=== PATIENT | female | born 1995 | race Caucasian/White ===

== ENCOUNTER 2018-02-24 20:37 | Emergency (ER) | payer OTHER | END 2018-02-24 21:47 | disposition home or self-care (01) | LOC: D.ER 20:37 | DX: S39.012A Strain of muscle, fascia and tendon of lower back, initial encounter (principal); X58.XXXA Exposure to other specified factors, initial encounter; Y93.89 Activity, other specified; Y92.89 Other specified places as the place of occurrence of the external cause; M54.32 Sciatica, left side ==

== ENCOUNTER → 2018-12-16 11:56 | Outpatient (CLI) | payer BC | END | disposition home or self-care (01) | LOC: D.RAD 09:00 | DX: S43.005A Unspecified dislocation of left shoulder joint, initial encounter (principal); X58.XXXA Exposure to other specified factors, initial encounter ==

== ENCOUNTER 2019-03-04 18:17 | Emergency (ER) | payer BC ==
[~2019-03-04] VITALS: Ht 180.3 cm; Wt 145.5 kg
[2019-03-04 18:30] VITALS: Ht 180.3 cm; Wt 145.5 kg
[2019-03-04] MEDS ORDERED: PREPLUS CA-FE1 EACH PO (18:32)
[2019-03-04] MEDS ORDERED: ZOFRAN4 MG PO (18:32)
[2019-03-04 19:08] LABS: APPEARANCE CLEAR (CLEAR); BILIRUBIN NEGATIVE (NEGATIVE); COLOR YELLOW (YELLOW); GLUCOSE NEGATIVE (NEGATIVE); KETONE NEGATIVE (NEGATIVE); NITRITE NEGATIVE (NEGATIVE); PROTEIN NEGATIVE (NEGATIVE); SPECIFIC GRAVITY 1.025 (1.005-1.020); UROBILINOGEN NORMAL (NORMAL)
[2019-03-04 19:43] LABS: BASOPHILS 0.1 % (0-2); EOSINOPHILS 0.7 % (0-7); HEMATOCRIT 37.5 % (36.0-48.0); HEMOGLOBIN 12.9 g/dL (12-16); IMMATURE GRANULOCYTES 0.3 % (0-5); LYMPHOCYTES 20.4 % (15-50); MCH 27.7 pg (26.0-34.0); MCHC 34.4 g/dL (31.0-37.0); MCV 80.5 fL (80.0-100.0); MEAN PLATELET VOLUME 10.2 fL (7.4-10.4); MONOCYTES 5.9 % (2-11); NEUTROPHILS 72.6 % (40-80); PLATELET COUNT 220 10x3/uL (130-400); RBC 4.66 10x6/uL (4.00-5.40); RDW 13.8 % (11.5-14.5); WBC 11.8 10x3/uL (4.8-10.8)
[2019-03-04 20:26] LABS: ALBUMIN 3.4 g/dL (3.4-5.0); ALKALINE PHOSPHATASE 69 U/L (46-116); ALT (SGPT) 21 U/L (10-68); BILIRUBIN - TOTAL 0.26 mg/dL (0.2-1.3); CALC OSMOLALITY 272 mosm/kg (275-300); CALCIUM 9.4 mg/dL (8.5-10.1); CARBON DIOXIDE 25.7 mmol/L (21.0-32.0); CHLORIDE - SERUM 102 mmol/L (98-107); CREATININE - SERUM 0.6 mg/dL (0.6-1.3); GLUCOSE 90 mg/dL (74-106); POTASSIUM - SERUM 3.6 mmol/L (3.5-5.1); PROTEIN - SERUM 7.5 g/dL (6.4-8.2); SODIUM 137 mmol/L (136-145); UREA NITROGEN 9 mg/dL (7-18); eGFR NON AFRICAN AMERICAN > 90 mL/min (90-120)
[2019-03-04 20:48] LABS: AMYLASE - SERUM 37 U/L (25-115); HCG - QUANTITATIVE (MATERNAL) 22590 mIU/mL; LIPASE 128 U/L (73-393)
[2019-03-04 21:52] VITALS: BP 132/80
== END 2019-03-04 21:52 | disposition home or self-care (01) ==
LOC: D.ER 18:17
PROVIDERS: Family Medicine
DX: O34.80 Maternal care for other abnormalities of pelvic organs, unspecified trimester (principal)

== ENCOUNTER → 2019-06-17 07:58 | Outpatient (CLI) | payer BC ==
[2019-03-04 18:30] VITALS: BMI 44.7
[~2019-06-17 07:58] MED LIST: BUTALB-APAP-CA1 EACH PO; PREPLUS CA-FE1 EACH PO; ZOFRAN4 MG PO
[2019-06-17 08:56] LABS: APPEARANCE CLOUDY (CLEAR); COLOR YELLOW (YELLOW); SPECIFIC GRAVITY 1.025 (1.005-1.020)
[2019-06-17 08:57] LABS: AMORPHOUS SEDIMENT <1+ /lpf (NONE SEEN); BACTERIA MANY /hpf (NONE SEEN); BILIRUBIN NEGATIVE (NEGATIVE); GLUCOSE NEGATIVE (NEGATIVE); KETONE SMALL mg/dL (NEGATIVE); MUCUS <1+ /lpf (NONE SEEN); NITRITE NEGATIVE (NEGATIVE); PROTEIN TRACE mg/dL (NEGATIVE); RED CELLS - URINE RARE /hpf (0-5)
[2019-06-17 09:31] LABS: BASOPHILS 0 % (0-2); EOSINOPHILS 0.3 % (0-7); HEMOGLOBIN 10.2 g/dL (12-16); IMMATURE GRANULOCYTES 0.2 % (0-5); LYMPHOCYTES 9.7 % (15-50); MCH 26.5 pg (26.0-34.0); MCHC 32.9 g/dL (31.0-37.0); MCV 80.5 fL (80.0-100.0); MONOCYTES 5.7 % (2-11); NEUTROPHILS 84.1 % (40-80); PLATELET COUNT 200 10x3/uL (130-400); RBC 3.85 10x6/uL (4.00-5.40); WBC 11.6 10x3/uL (4.8-10.8)
[2019-06-17 09:49] LABS: ALBUMIN 2.4 g/dL (3.4-5.0); ALKALINE PHOSPHATASE 110 U/L (46-116); ALT (SGPT) 13 U/L (10-68); BILIRUBIN - TOTAL 0.23 mg/dL (0.2-1.3); CALC OSMOLALITY 274 mosm/kg (275-300); CALCIUM 8.3 mg/dL (8.5-10.1); CHLORIDE - SERUM 105 mmol/L (98-107); CREATININE - SERUM 0.5 mg/dL (0.6-1.3); GLUCOSE 126 mg/dL (74-106); POTASSIUM - SERUM 3.7 mmol/L (3.5-5.1); PROTEIN - SERUM 6.2 g/dL (6.4-8.2); SODIUM 138 mmol/L (136-145); UREA NITROGEN 5 mg/dL (7-18); eGFR NON AFRICAN AMERICAN > 90 mL/min (90-120)
== END | disposition home or self-care (01) ==
LOC: D.LDO 07:58
PROVIDERS: ATTEND Obstetrics & Gynecology
DX: O26.893 Other specified pregnancy related conditions, third trimester (principal); Z3A.32 32 weeks gestation of pregnancy

== ENCOUNTER → 2019-07-28 16:31 | Outpatient (CLI) | payer BC ==
[2019-03-04 18:30] VITALS: BMI 44.7
== END | disposition home or self-care (01) ==
LOC: D.LDO 16:31
PROVIDERS: ATTEND Obstetrics & Gynecology
DX: O26.893 Other specified pregnancy related conditions, third trimester (principal); Z3A.37 37 weeks gestation of pregnancy

== ENCOUNTER → 2019-07-29 15:48 | Outpatient (CLI) | payer BC ==
[2019-03-04 18:30] VITALS: BMI 44.7
[2019-07-29 16:15] LABS: PROTEIN - URINE 7.3 mg/dL (0.0-11.9)
== END | disposition home or self-care (01) ==
LOC: D.LDO 15:48
PROVIDERS: ATTEND Obstetrics & Gynecology
DX: Z34.90 Encounter for supervision of normal pregnancy, unspecified, unspecified trimester (principal)

== ENCOUNTER → 2019-08-04 14:04 | Outpatient (CLI) | payer BC ==
[2019-03-04 18:30] VITALS: BMI 44.7
[2019-08-04 14:32] LABS: BASOPHILS 0.1 % (0-2); EOSINOPHILS 0.4 % (0-7); HEMATOCRIT 30.5 % (36.0-48.0); HEMOGLOBIN 9.7 g/dL (12-16); IMMATURE GRANULOCYTES 0.4 % (0-5); LYMPHOCYTES 11.4 % (15-50); MCH 24.1 pg (26.0-34.0); MCHC 31.8 g/dL (31.0-37.0); MCV 75.9 fL (80.0-100.0); MEAN PLATELET VOLUME 10.6 fL (7.4-10.4); MONOCYTES 6.4 % (2-11); NEUTROPHILS 81.3 % (40-80); PLATELET COUNT 185 10x3/uL (130-400); RBC 4.02 10x6/uL (4.00-5.40); RDW 14.7 % (11.5-14.5)
[2019-08-04 14:57] LABS: ALBUMIN 2.5 g/dL (3.4-5.0); ALKALINE PHOSPHATASE 173 U/L (46-116); ALT (SGPT) 13 U/L (10-68); BILIRUBIN - INDIRECT 0.22 mg/dL (0.00-1.00); BILIRUBIN - TOTAL 0.32 mg/dL (0.2-1.3); CALC OSMOLALITY 277 mosm/kg (275-300); CALCIUM 8.3 mg/dL (8.5-10.1); CARBON DIOXIDE 22.7 mmol/L (21.0-32.0); CHLORIDE - SERUM 106 mmol/L (98-107); CREATININE - SERUM 0.5 mg/dL (0.6-1.3); GLUCOSE 112 mg/dL (74-106); POTASSIUM - SERUM 3.9 mmol/L (3.5-5.1); PROTEIN - SERUM 5.9 g/dL (6.4-8.2); SODIUM 140 mmol/L (136-145); UREA NITROGEN 7 mg/dL (7-18); eGFR NON AFRICAN AMERICAN > 90 mL/min (90-120)
[2019-08-05 17:45] LABS: PROTEIN - URINE 6.6 mg/dL (0.0-11.9)
[2019-08-15 21:59] VITALS: BMI 45.0
== END | disposition home or self-care (01) ==
LOC: D.LDO 14:04
PROVIDERS: ATTEND Obstetrics & Gynecology
DX: O10.919 Unspecified pre-existing hypertension complicating pregnancy, unspecified trimester (principal)

== ENCOUNTER 2019-08-15 20:26 | Inpatient (IN) | payer BC ==
[~2019-08-15] VITALS: Ht 180.3 cm; Wt 146.5 kg
[2019-08-15 21:59] VITALS: BP 144/67; Ht 180.3 cm; Wt 146.5 kg
[2019-08-16 00:03] LABS: MCH 24.6 pg (26.0-34.0); MCHC 32.3 g/dL (31.0-37.0); MCV 76.4 fL (80.0-100.0); MEAN PLATELET VOLUME 10.8 fL (7.4-10.4); RBC 4.06 10x6/uL (4.00-5.40); RDW 14.3 % (11.5-14.5); WBC 12.8 10x3/uL (4.8-10.8)
[2019-08-16 00:06] LABS: APPEARANCE HAZY (CLEAR); BILIRUBIN NEGATIVE (NEGATIVE); COLOR YELLOW (YELLOW); GLUCOSE NEGATIVE (NEGATIVE); KETONE NEGATIVE (NEGATIVE); NITRITE NEGATIVE (NEGATIVE); PROTEIN NEGATIVE (NEGATIVE); UROBILINOGEN NORMAL (NORMAL)
[2019-08-16 00:08] LABS: BACTERIA MODERATE /hpf (NEGATIVE); EPITHELIAL CELLS 0-5 /hpf (0-5); RED CELLS - URINE 0-5 /hpf (0-5)
[2019-08-16 00:20] LABS: UDS - AMPHET NEGATIVE QUAL (NEGATIVE); UDS - BARB NEGATIVE QUAL (NEGATIVE); UDS - BENZO NEGATIVE QUAL (NEGATIVE); UDS - COCAINE NEGATIVE QUAL (NEGATIVE); UDS - OPIATE NEGATIVE QUAL (NEGATIVE); UDS - PCP NEGATIVE QUAL (NEGATIVE); UDS - THC NEGATIVE QUAL (NEGATIVE)
[2019-08-17 07:13] LABS: RAPID PLASMA REAGIN Non Reactive (Non Reactive)
[2019-08-17 13:23] VITALS: BP 103/57
--- NOTE | 2019-08-17 21:16 | NUR ---
PT RETURNED FROM PACU IN STABLE CONDITION, BLEEDING MODERATE, FUNDUS ML/-1/FIRM. PERICARE PERFORMED AND CLEAN PAD PLACED. IV CONTINUES WITH NS/20U PITOCIN AT 125ML/HR/ CHESTER CATHETER DRAINING TO GRAVITY WITH 75ML CLEAR YELLOW URINE NOTED IN UROMETER. LOW TRANSVERSE ABDOMINAL DRESSING NOTED TO BE CLEAN DRY AND INTACT. PT DENIES PAIN AT THIS TIME.
--- NOTE | 2019-08-17 21:33 | NUR ---
TORADOL 30MG IVP ADMINISTERED AT THIS TIME PER MD ORDERS. SEE EMAR
[2019-08-17 21:36] VITALS: BP 133/61
--- NOTE | 2019-08-17 21:36 | NUR ---
PERICARE DONE, FUNDUS REMAINS MIDLINE/U-1, FIRM. BLEEDING IS SMALL RUBRA, CLEAN PAD PLACED. PT DENIES PAIN OR NEEDS. WILL CONTINUE TO MONITOR.
[2019-08-17 21:57] VITALS: BP 132/63
--- NOTE | 2019-08-17 21:59 | NUR ---
FUNDUS REMAINS FIRM/ML/-1, BLEEDING SMALL RUBRA, PERICARE DONE AND PAD CHANGED. CHESTER DRAINING TO GRAVITY WITH SALOME URINE NOTED. IV CONTINUES WITH NO SIGNS OF INFILTRATION. PT DENIES PAIN. BED REMAINS LOW IN LOCKED POSITION, SIDE RAILS UPX2, CALL ARAUZ AND TRAY TABLE IN REACH. WILL CONTINUE TO MONITOR
[2019-08-17 22:20] VITALS: BP 133/59
--- NOTE | 2019-08-17 22:22 | NUR ---
PT WITH SCANT BLEEDING, CHESTER CONTINUING TO DRAIN TO GRAVITY WITH 40 ML SALOME URINE NOTED. BED REMAINS LOCKED IN LOW POSITION, SIDERAILS UPX2, CALL ARAUZ AND TRAY TABLE IN REACH. WILL CONTINUE TO MONITOR
--- NOTE | 2019-08-17 22:40 | NUR ---
NEW IV BAG HUNG PER MD ORDERS, SEE EMAR.
--- NOTE | 2019-08-17 22:41 | NUR ---
ADMINISTERED DILAUDID 1MG SLOW IVP PER PT REQUEST FOR PAIN 03/25. SEE EMAR.
[2019-08-17 23:07] VITALS: BP 127/57
--- NOTE | 2019-08-17 23:07 | NUR ---
PT SLEEPING O2 SAT NOTED TO BE 92%, EASILY AROUSED TO VERBAL STIMULI. NASAL CANNULA APPLIED WITH 2L/MIN. PT DENIES NEEDS, WILL CONTINUE TO MONITOR
--- NOTE | 2019-08-17 23:51 | NUR ---
PATIENT RESTING QUIETLY WITH EYES CLOSED, RESPIRATIONS EVEN AND NONLABORED. PT CONTINUES WITH O2@2L/MIN WITH O2 SAT READING OF 96%. SIGNIFICANT OTHER REMAINS AT BEDSIDE FOR SUPPORT. BED IS LOCKED IN LOW POSITION, SIDE RAILS UPX2, CALL ARAUZ AND TRAY TABLE IN REACH. WILL CONTINUE TO MONITOR.
[2019-08-17 23:56] VITALS: BP 123/60
--- NOTE | 2019-08-18 00:30 | NUR ---
PT SLEEPING WITH EVEN RESPIRATIONS, NO DISTRESS NOTED. EASILY AROUSED TO VERBAL STIMULI, RATES HER PAIN 5/10 BUT STATES THAT IT HAD GOTTEN BETTER WITH THE PAIN MEDICINE. FUNDUS ML/U-1/FIRM, BLEEDING SMALL RUBRA, CLEAN PADS PLACED. CHESTER CATHETER UROMETER EMPTIED OF 75 ML DARK YELLOW URINE. BED REMAINS LOCKED IN LOW POSITION, SIDE RAILS UPX2, CALL ARAUZ AND TRAY TABLE IN REACH. SIGNIFICANT OTHER REMAINS AT BEDSIDE FOR SUPPORT.
--- NOTE | 2019-08-18 02:55 | NUR ---
PT RESTING QUIETLY WITH EYES CLOSED, RATES HER PAIN 7/10. DILAUDID 2MG SLOW IVP ADMINISTERED PER MD ORDERS, SEE EMAR.CHESTER CATHETER REMAINS DRAINING TO GRAVITY, 125ML SALOME URINE EMPTIED FROM UROMETER. ICE WATER PROVIDED PER PT REQUEST. O2 REMAINS ON VIA NC AT 2L/MIN. NO FURTHER NEEDS IDENTIFIED, WILL CONTINUE TO MONITOR
--- NOTE | 2019-08-18 03:37 | NUR ---
PT SLEEPING WITH AUDIBLE SNORING, EASILY AROUSED TO VERBAL, RATES HER PAIN 1/10. TORADOL ADMINISTERED PER MD ORDERS, SEE EMAR. PT CONTINUES TO HAVE SCD BOOTS ATTACHED TO WORKING MACHINE, CHESTER CATHETER DRAINING TO GRAVITY, LOW TRANSVERSE ABDOMINAL DRESSING REMAINS CLEAN DRY AND INTACT. OXYGEN REMAINS ON PT VIA NC AT 2L/MIN WITH O2 SAT 95% BED REMAINS LOCKED IN LOW POSITION, SIDE RAILS UP X2, CALL ARAUZ AND TRAY TABLE IN REACH. WILL CONTINUE TO MONITOR.
--- NOTE | 2019-08-18 05:57 | NUR ---
PT RESTING QUIETLY WITH EYES CLOSED, EASILY AROUSED TO VERBAL. PT DENIES PAIN OR NEEDS AT THIS TIME. SIGNIFICANT OTHER REMAINS AT BEDSIDE FOR SUPPORT. WILL CONTINUE TO MONITOR
--- NOTE | 2019-08-18 06:28 | NUR ---
PERICARE PERFORMED, CLEAN PADS PLACED, BLEEDING SMALL, RUBRA WITH NO CLOTS. CHESTER REMAINS DRAINING TO GRAVITY 75 ML SALOME URINE NOTED IN UROMETER. NEW BAG OF IV FLUIDS HUNG PER MD ORDERS. PT DENIES NEEDS, WILL CONTINUE TO MONITOR.
--- NOTE | 2019-08-18 07:25 | NUR ---
TO ROOM FOR AM ASSESSMENT. SEE FLOWSHEET FOR COMPLETE DOCUMENTATION. ABDOMEN PALPATES SOFT, FUNDUS FIRM, U/1, SMALL RUBRA LOCHIA, NO CLOTS NOTED. DRESSING C/D/I. FRESH ICE PACK PLACED OVER GOWN TO INCISION. PT REPORTS +FLATUS. DENIES NAUSEA/VOMITING, SOB, DIZZINESS OR DIFFICULTY BREATHING. CHESTER CATH NOTED TO HAVE 50 CC'S DARK YELLOW URINE IN UROMETER. LARGE MUG OF ICE WATER SERVED TO PT AND ENCOURAGED PO INTAKE. INCENTIVE SPIROMETER PROVIDED TO PT WITH INSTRUCTIONS ON USE, AND PT DEMONSTRATES WELL. COUGHING AND DEEP BREATHING EXERCISES EXPLAINED TO PT. CLEAR LIQUID TRAY SERVED BY DIETARY. PT DENIES ALL OTHER NEEDS. SRUP X2, CALL LIGHT AND PHONE WITHIN REACH.
[2019-08-18 07:27] VITALS: BP 126/63
--- NOTE | 2019-08-18 08:37 | NUR ---
PT SITTING UP IN THE BED, FAMILY AT BEDSIDE. 30 CC'S DARK YELLOW URINE NOTED IN UROMETER. PT STATES "THAT CHICKEN BROTH MADE ME A LITTLE SICK TO MY STOMACH", DENIES NAUSEA NOW. DENIES WANTING MEDICATION TO HELP WITH NAUSEA. PT IS TOLERATING DRINKING WATER AND APPLE JUICE THIS AM. PT DENIES ALL OTHER NEEDS.
--- NOTE | 2019-08-18 09:45 | NUR ---
to room for toradol adm. pt is asleep, snoring softly, resp even and unlabored at 18/min. awakened pt, medication adm schedule explained to pt. toradol diluted in 10 cc's ns, and given sivp, then flushed with 10 cc's ns. iv site without redness or swelling, no c/o pain to iv site. sig other on sofa, resting. pt wishes to have all lights out, and wants to sleep. sr up x2, call light and phone within reach.
[2019-08-18 12:45] VITALS: BP 131/68
--- NOTE | 2019-08-18 12:45 | NUR ---
to pt's room, pt is resting in bed, watching tv. family at bedside. abdomen continues to palpate soft. dressing over incision remains c/d/i. gallagher cath removed intact with 150 ml's dark yellow urine out. pericare done with warm wet washcloths, peritowels/pads changed. pt served large glass of ice water. pt continues to use incentive spirometer, and coughing and deep breathing exercises well. denies sob, difficulty breathing, or n/v. see emar for all meds adm by this rn. sr upx 2, call light and phone within reach.
--- NOTE | 2019-08-18 17:15 | NUR ---
pt assisted up to br, gait slow and steady. pt voids 200 ml's in [place] hat. pericare done per self with warm wet washcloths. peripanties and pads on. clean gown on. chux changed. pt then back to bed, with assistance. srup x2, call light and phone within reach. dietary contacted for regular diet. pt denies all other needs at this time. srup x2, call light and phone within reach.
[2019-08-18 19:55] VITALS: BP 136/67
--- NOTE | 2019-08-18 19:55 | NUR ---
PATIENT WALKING BACK TO BED FROM THE BATHROOM, PT VOIDED WITHOUT INCIDENT 900 ML CLEAR YELLOW URINE EMPTIED FROM URINE HAT. BLEEDING SMALL,RUBRA WITH NO CLOTS NOTED. PATIENTS ABD DRESSING REMAINS CLEAN DRY AND INTACT, DECLINES A SHOWER AT THIS TIME. STATES THAT SHE IS TOO TIRED. PERCOCET 10/325MG ADMINISTERED PO PER MD ORDERS AND PT REQUEST. BED REMAINS LOCKED IN LOW POSITION, SIDERAILS UPX2,CALL ARAUZ AND TRAY TABLE IN REACH. WILL CONTINUE TO MONITOR.
--- NOTE | 2019-08-18 20:59 | NUR ---
PATIENT SITTING UP IN BED EATING FOOD BROUGHT FROM HOME. HR 103. PT DENIES NEEDS. WILL CONTINUE TO MONITOR
--- NOTE | 2019-08-18 21:52 | NUR ---
PATIENT SITTING UP IN BED EATING ICE CREAM, INFANT REMAINS AT BEDSIDE IN OPEN CRIB. PT DENIES NEEDS OR PAIN AT THIS TIME. WILL CONTINUE TO MONITOR
[2019-08-18 23:02] VITALS: BP 145/85
--- NOTE | 2019-08-18 23:04 | NUR ---
PATIENT AMBULATING BACK TO BED FROM BATHROOM, RATES HER PAIN 8/10. PT IS TEARFUL. WILL BRING TORADOL SCHEDULED AT 2330.
--- NOTE | 2019-08-18 23:55 | NUR ---
PT RESTING QUIETLY WITH EYES CLOSED, EASILY AROUSED TO VERBAL, HR 125, LUNG SOUNDS CLEAR BILATERALLY. PT RATES HER PAIN 7/10, NORCO 10/325MG PO ADMINISTERED AT THIS TIME PER PT REQUEST AND MD ORDERS. NO FURTHER NEEDS IDENTIFIED. WILL CONTINUE TO MONITOR.
--- NOTE | 2019-08-19 00:40 | NUR ---
pt resting quietly with eyes closed, no distress noted.
--- NOTE | 2019-08-19 02:55 | NUR ---
PATIENT RESTING QUIETLY IN BED WITH EYES CLOSED, EASILY AROUSED TO VERBAL STIMULI, DENIES PAIN OR NEEDS AT THIS TIME.
--- NOTE | 2019-08-19 04:00 | NUR ---
CALLED TO ROOM BY PT FOR ASSISTANCE UP TO THE BATHROOM. PT VOIDED WITHOUT DIFFICULTY, SMALL RUBRA LOCHIA, PAD CHANGED AND PT BACK TO BED.
--- NOTE | 2019-08-19 04:08 | NUR ---
NORCO 10/325MG PO PER MD ORDERS AND PT REQUEST. JUICE PROVIDED, NO FURTHER NEEDS IDENTIFIED. WILL CONTINUE TO MONITOR
--- NOTE | 2019-08-19 07:30 | NUR ---
ASSUMED CARE OF THIS PATIENT AT THIS TIME. SITTING UP IN BED GETTING READY TO EAT BREAKFAST. IN CRIB. WILL COMPLETE SHIFT ASSESSMENT AFTER BREAKFAST. RESTAURANT HOURLY TEAM MEMBER, NON SMOKER, GBS NEG, UDS +. A+ RUBELLA IMMUNE. DENIES NEEDING ANYTHING AT THIS TIME. SIDE RAILS UP X 2, CALL LIGHT IN REACH. DISCUSSED PLAN OF CARE FOR TODAY TO INCLUDE SHOWER AND AMBULATION IN GRAVES. VERBALIZED UNDERSTANDING.
--- NOTE | 2019-08-19 08:19 | NUR ---
PATIENT'S ADMISSION UDS WAS NEGATIVE. RECEIVED TDAP DURING ON 06/22/2019.
[2019-08-19 08:26] VITALS: BP 140/69
--- NOTE | 2019-08-19 09:12 | NUR ---
COMPLETED SHOWER, DRESSING REMOVED, LEE INTACT NO DRAINAGE, NO ERRYTHEMA. INSTRUCTED ON CARE OF INCISION DURING SHOWER. INSTRUCTED ON USE OF JOSE ALEJANDRO-PAD OVER INCISION AND TO CHANGE EVERY 2 -3 HOURS. VERBALIZED UNDERSTANDING. REQUESTED PAIN MEDICATION FOR 6/10 INCISIONAL PULLING. PERCOCET 10 MG GIVEN PO. SIDE RAILS UP X 2, CALL LIGHT IN REACH. INFANT IN NURSERY, FOB ON COUCH.
[2019-08-19 09:15] VITALS: BP 120/62
--- NOTE | 2019-08-19 10:59 | NUR ---
SITTING UP IN BED TALKING TO FOB. DENIES NEEDING ANYTHING FOR PAIN AT THIS TIME. FOB BOTTLE FED . ABD BINDER AT BEDSIDE PT WILL CALL WHEN OOB TO ASSIST WITH PUTTING BINDER ON. NO REQUESTS AT THIS TIME. WILL BE DC'D HOME TOMORROW.
--- NOTE | 2019-08-19 14:33 | NUR ---
AMBULATED TO NURSERY AND BACK TO ROOM WITHOUT DIFFICULTY. ENCOURAGE TO GET OOB AND AMBULATE IN GRAVES 2-3 MORE TIMES THIS AFTERNOON. ALSO ENCOURAGED TO SIT UP ON COUCH. VERBALIZED UNDERSTANDING. INFANT IN ROOM WITH FOB WHO HAS BEEN FEEDING AND CHANGING 'S DIAPER. TO CALL IF ANYTHING IS NEEDED.
--- NOTE | 2019-08-19 16:05 | NUR ---
SITTING UP IN BED GETTING READY TO AMBULATE IN GRAVES. SAYS SHE IS FEELING BETTER. FOB IN ROOM. INFANT IN CRIB. NO REQUESTS.
--- NOTE | 2019-08-19 16:56 | NUR ---
AMBULATED IN GRAVES AND RETURNED TO ROOM. VISITORS IN ROOM WITH . OFFERED PAIN MEDICATION. DECLINED. SAYS SHE WILL CALL WHEN READY.
[2019-08-19 18:18] VITALS: BP 140/61
--- NOTE | 2019-08-19 18:19 | NUR ---
SITTING UP IN BED. REQUESTED PAIN MEDICATION. PERCOCET 10 MG GIVEN PO FOR RELIEF OF 6/10 INCISIONAL ACHING. ASLEEP IN CRIB, RESP EVEN. FOB SLEEPING ON COUCH. DENIES NEEDING ANYTHING ELSE AT THIS TIME. STATES "IT'S ALMOST TIME TO FEED HIM, LET HIM SLEEP FOR NOW." SIDE RAILS UP X 2, CALL LIGHT IN REACH.
[2019-08-19 19:51] VITALS: BP 149/73
--- NOTE | 2019-08-19 19:51 | NUR ---
PT REC'D IN BED AT THIS TIME. HOLDING INFANT. DENIES PAIN AT THIS TIME. LUNGS CLEAR. BS+. PT STATES THAT SHE IS PASSING FLATUS. LEE TO ABDOMEN INTACT. NO S/S OF INFECTION NOTED. FUNDUS FIRM AND MIDLINE. SMALL LOCHIA NOTED. NO ACUTE DISTRESS NOTED. Zari AIKEN RN
--- NOTE | 2019-08-19 20:43 | NUR ---
PT WITH FAMILY AT THE BEDSIDE. NO DISTRESS NO SARHA. NO NEEDS VOICED. Zari AIKEN RN
--- NOTE | 2019-08-19 21:39 | NUR ---
PT AMBULATING AT THIS TIME. DENIES NEEDS AT THIS TIME. Zari AIKEN RN
--- NOTE | 2019-08-19 22:36 | NUR ---
PT MEDICATED WITH TORADOL FOR PAIN LEVEL OF 6 WILL CONTINUE TO MONITOR. Zari AIKEN RN
--- NOTE | 2019-08-19 23:45 | NUR ---
PT UP AMBULATING AT THIS TIME. PT STATES THAT PAIN IS A 5 WHILE AMBULATING BUT NO NEED FOR PAIN MEDS AT THIS TIME. WILL CONTINUE TO MONITOR. Zari AIKEN RN
[2019-08-20 00:55] VITALS: BP 135/60
--- NOTE | 2019-08-20 00:55 | NUR ---
PT STATES THAT PAIN IS A 2 AT THIS TIME. DENIES NEED FOR PAIN MEDICATION. RESTING COMFORTABLY AT THIS TIME. NIO DISTRESS NOTED. Zari AIKEN RN
--- NOTE | 2019-08-20 02:45 | NUR ---
PT REC'D IN BED ASLEEP. DID NOT AWAKEN. RESPS EVEN AND UNLABORED. WILL CONTINUE TO MONITOR. Zari AIKEN RN
[2019-08-20 05:17] VITALS: BP 139/69
--- NOTE | 2019-08-20 05:17 | NUR ---
PT REC'D IN BED AT THIS TIME. RESTING COMFORTABLY AT THIS TIME. STATES PAIN IS A 2. VITAL STABLE. NO ACUTE DISTRESS NOTED. Zari AIKEN RN
--- NOTE | 2019-08-20 07:15 | NUR ---
ASSUMED CARE OF THIS PATIENT AT THIS TIME. CURRENTLY SLEEPING. WILL COMPLETE SHIFT ASSESSMENT WHEN AWAKE OR AFTER BREAKFAST. SIDE RAILS UP X 2, CALL LIGHT IN REACH.
[2019-08-20 08:17] VITALS: BP 117/61
--- NOTE | 2019-08-20 08:17 | NUR ---
SHIFT ASSESSMENT COMPLETED. REGULAR DIET AT BEDSIDE. IN CRIB, FOB ON COUCH. DENIES NEEDING PAIN MEDICATION OR ANYTHING ELSE AT THIS TIME. DESIRES TO SLEEP. WILL DC HOME TODAY WITH INFANT PER MD ORDERS. UP TO DATE ON TDAP AND FLU VACCINE.
--- NOTE | 2019-08-20 08:31 | NUR ---
DR REDDY VISITED PT. INFORMED OF CURRENT BP. DC HOME TODAY WITH .
[2019-08-20] MEDS ORDERED: PERCOCET 5-3251 TAB PO (09:39)
--- NOTE | 2019-08-20 09:50 | NUR ---
SITTING UP IN BED HOLDING IN ARMS. FOB ON COUCH. DENIES NEEDING ANYTHING AT THIS TIME. SIDE RAILS UP X 2, CALL LIGHT IN REACH.
--- NOTE | 2019-08-20 11:20 | NUR ---
SLEEPING TILTED TO RIGHT SIDE, RESP EVEN. FOB SLEEPING ON COUCH. IN NURSERY FOR CIRCUMCISION. WILL DC HOME WHEN IS DC'D HOME.
--- NOTE | 2019-08-20 12:40 | NUR ---
AWAKE, DESIRES TO TAKE SHOWER NOW. VISITORS IN ROOM. IN ROOM. WILL DC WHEN INFANT IS DC'D THIS AFTERNOON. UP TO SHOWER.
--- NOTE | 2019-08-20 13:39 | NUR ---
REQUESTED PAIN MEDICATION BEFORE GOING HOME. PERCOCET 5 MG GIVEN PO FOR RELIEF OF 5/10 INCISIONAL ACHING. DC TEACHING TO INCLUDE POST OP C/S CARE, PP DEPRESSION, S&S INFECTION, DANGER SIGNS, BREAST CARE/BOTTLE FEEDING, MEDICATION ADMINISTRATION AND FOLLOW-UP. NO SPECIFIC QUESTIONS ASKED AT THIS TIME. VERBALIZED UNDERSTANDING. WAITING ON RIDE TO RETURN AND DC ON INFANT.
--- NOTE | 2019-08-20 14:45 | NUR ---
DC'D VIA WHEELCHAIR TO CAR. IN [place]. FAMILY MEMBER DRIVING CAR. HAS PRESCRIPTIONS AND DC INSTRUCTIONS. ALL BELONGINGS REMOVED FROM ROOM.
--- NOTE | 2019-08-23 07:42 | OP ---
PATIENT NAME: TIFFANY MARQUEZ MEDICAL RECORD: [id number] :96 LOCATION:[id number] ADMISSION DATE:08/15/19 SURGEON: NEFTALI GRESHAM MD DATE OF OPERATION: 08/17/2019 PREOPERATIVE DIAGNOSES: 1. -induced hypertension. 2. at term. 3. Nonreassuring tracing. POSTOPERATIVE DIAGNOSES: 1. -induced hypertension. 2. at term. 3. Nonreassuring tracing. 4. Nuchal cord. PROCEDURE: Primary low transverse section. SURGEON: Neftali Gresham MD ANESTHESIOLOGIST: Dr. Smiley. DEFENCE INTELLIGENCE ANALYST: Aydin Denney. ANESTHETIC: Continuous lumbar epidural. FINDINGS: Viable male infant, vertex presentation, Apgars were 8 and 9. Nuchal cord reduced. Weight 8 pounds 10 ounces. Unremarkable appearing uterus, tubes, and ovary. SPECIMENS REMOVED: Placenta. SPECIMEN DISPOSITION: Discarded. Cord blood and blood gas sent. ESTIMATED BLOOD LOSS: 800 cc. FLUIDS: 1600 cc of lactated Ringer's. URINE OUTPUT: 200 cc of clear urine. COMPLICATIONS: None. DRAINS: Ramachandran to gravity. INDICATIONS: The patient is a 24-year-old G1, para 0 at 40 weeks with elevation in blood pressure. The patient was considered for induction of labor. The patient received 24 hours of Cytotec and then Pitocin. The patient progressed to 6 cm; however, with labor contractions, adequate repetitive late decelerations occurred times 2. The patient is consented for a primary low transverse section. DESCRIPTION OF PROCEDURE: After informed consent was assured, the patient was taken to the operating room where anesthetic was assessed and found to be OPERATIVE REPORT [id number] TIFFANY MARQUEZ adequate. With the patient prepped and draped, a low transverse incision was made on the abdomen, carried down to the underlying layer of the fascia, which was opened in the midline and extended out laterally. Rectus bellies were dissected free, then in the midline. The peritoneum was entered bluntly and Gopi retractor inserted and tightened. DeLee all-purpose retractor was now inserted and bladder flap developed. The bladder blade was now reinserted and low transverse hysterotomy was performed. The was delivered onto the abdomen. Cord was doubly clamped and cut and the was passed to the attendance. Cord blood sample and cord gas were sent. The IUPC had been left in place and it is removed. The placenta was delivered via Crede maneuver and uterus exteriorized, cleared of all clot and debris. After clearing the uterus of debris and clot, it was returned to the abdomen and the hysterotomy was closed. There is a vertical rent in the midline below the level of the hysterotomy and this was closed with a small run of chromic stitch. The low transverse hysterotomy was now closed in a running fashion. After the close of the hysterotomy, the pelvis irrigated, irrigant removed and inspection of the hysterotomy reveals adequate hemostasis. The rectus bellies were inspected and found to be hemostatic. The fascia was now closed with looped PDS and subcutaneous tissues reapproximated with plain gut. Luttrell were applied. Sponge, lap, needle counts were correct times 2. The patient recovered in labor and delivery and then will continue for care. TRANSINT:[id number] Voice Confirmation ID: [id number] DOCUMENT ID: [id number] NEFTALI GRESHAM MD at 0742 CC: [id number] DICTATION DATE: 08/17/192038 BARREL HEADER: 08/18/19 0429 DIS IN 08/20/19 [facility] [address] [place] [address]
== END 2019-08-20 14:45 | disposition home or self-care (01) | DRG 788 ==
LOC: D.LD 20:26
PROVIDERS: ADMIT Obstetrics & Gynecology; ATTEND Obstetrics & Gynecology
PROC: 3E033VJ Introduction of Other Hormone into Peripheral Vein, Percutaneous Approach (ICD-10-PCS; 2019-08-17)
PROC: 10D00Z1 Extraction of Products of Conception, Low, Open Approach (ICD-10-PCS; principal; 2019-08-17 20:00)
DX: O13.4 Gestational [pregnancy-induced] hypertension without significant proteinuria, complicating childbirth (principal); Z3A.39 39 weeks gestation of pregnancy; Z37.0 Single live birth; O76 Abnormality in fetal heart rate and rhythm complicating labor and delivery; O69.81X0 Labor and delivery complicated by cord around neck, without compression, not applicable or unspecified

== ENCOUNTER 2019-09-13 15:56 | Emergency (ER) | payer BC ==
[~2019-09-13] VITALS: Ht 180.3 cm; Wt 131.8 kg
[~2019-09-13 15:56] MED LIST changes: +PERCOCET 5-3251 TAB PO
[2019-09-13 16:08] VITALS: Ht 180.3 cm; Wt 131.8 kg
[2019-09-13] MEDS ORDERED: BIRTH CONTROL (16:09)
[2019-09-13 16:55] LABS: BASOPHILS 0.1 % (0-2); EOSINOPHILS 1.1 % (0-7); HEMATOCRIT 36.8 % (36.0-48.0); HEMOGLOBIN 10.8 g/dL (12-16); IMMATURE GRANULOCYTES 0.1 % (0-5); LYMPHOCYTES 27.9 % (15-50); MCHC 29.3 g/dL (31.0-37.0); MCV 78.5 fL (80.0-100.0); MONOCYTES 4.5 % (2-11); NEUTROPHILS 66.3 % (40-80); RBC 4.69 10x6/uL (4.00-5.40); RDW 15.9 % (11.5-14.5); WBC 9.1 10x3/uL (4.8-10.8)
[2019-09-13 16:59] LABS: PLATELET COUNT 291 10x3/uL (130-400)
[2019-09-13 17:01] LABS: APPEARANCE CLEAR (CLEAR); BILIRUBIN NEGATIVE (NEGATIVE); COLOR YELLOW (YELLOW); GLUCOSE NEGATIVE (NEGATIVE); KETONE NEGATIVE (NEGATIVE); NITRITE NEGATIVE (NEGATIVE); PROTEIN NEGATIVE (NEGATIVE); SPECIFIC GRAVITY 1.015 (1.005-1.020); UROBILINOGEN NORMAL (NORMAL)
[2019-09-13 17:12] LABS: BACTERIA FEW /hpf (NEGATIVE); EPITHELIAL CELLS 0-5 /hpf (0-5); RED CELLS - URINE 25-50 /hpf (0-5); WHITE CELLS - URINE 0-5 /hpf (NEGATIVE)
[2019-09-13 17:15] LABS: CALC OSMOLALITY 281 mosm/kg (275-300); CALCIUM 8.4 mg/dL (8.5-10.1); CARBON DIOXIDE 26.8 mmol/L (21.0-32.0); CHLORIDE - SERUM 106 mmol/L (98-107); CREATININE - SERUM 0.6 mg/dL (0.6-1.3); GLUCOSE 111 mg/dL (74-106); POTASSIUM - SERUM 3.7 mmol/L (3.5-5.1); SODIUM 141 mmol/L (136-145); UREA NITROGEN 12 mg/dL (7-18); eGFR NON AFRICAN AMERICAN > 90 mL/min (90-120)
[2019-09-13 17:24] LABS: ALBUMIN 3.1 g/dL (3.4-5.0); ALKALINE PHOSPHATASE 138 U/L (46-116); ALT (SGPT) 22 U/L (10-68); AMYLASE - SERUM 45 U/L (25-115); BILIRUBIN - TOTAL 0.21 mg/dL (0.2-1.3); LIPASE 198 U/L (73-393); TROPONIN-I < 0.017 ng/mL (0.000-0.060)
[2019-09-13 20:55] VITALS: BP 164/94
== END 2019-09-13 20:55 | disposition home or self-care (01) ==
LOC: D.ER 15:56
PROVIDERS: Family Medicine
DX: O90.89 Other complications of the puerperium, not elsewhere classified (principal); N83.202 Unspecified ovarian cyst, left side